=== PATIENT | male | born 1950 | race Two or more races ===

== ENCOUNTER → 2023-04-03 | Outpatient (CLI) | payer MEDICARE ==
--- NOTE | 2023-04-03 11:02 | CA ---
Stress Echo Report Aron Hubbard Age: 72 Gender: M : 1950 Exam Date: 04/03/2023 09:56 Exam Location: [place] Echo Ht (in): 70 Wt (lb): 200 Ordering Physician: Anjum Robison DO ([email or web address]) Referring Physician: MARCIA,, [employer] Car Repairer: Taylor Mcguire RDCS Technologist Procedure CPT: Indication: I25.10 ATHSCL HEART DISEASE OF [place] CORONARY ART ICD-9 Codes: Rhythm: Patient History: Post CABG, Smoker, Hypertension, Pre-op clearance Cardiac Medications: Medications in past 24 hours: Contrast: Stress Results Protocol: Phong Total dose(mL): Exercise Duration (min:sec): 4:[address] Depression (mm): Angina Score: Freire Score: METS: 5.4 Resting HR: 65 Resting BP: 149 / 99 Peak HR: 109 Peak BP: 193 / 89 Max Predicted HR: 147 74 % Max Predicted HR Target HR: 125 Double Product: [id number] Stress Summary: The patient's target heart rate was not achieved due to fatigue BP Response: Normal Reason for Termination: MAX EXERTION Cardiac Symptoms: FATIGUE ECG Analysis Resting ECG: Stress ECG: Arrhythmia: Echo Analysis Resting Echo: Peak Echo Analysis: MEASUREMENTS (Male/Female) Normal Values CONCLUSIONS Baseline EKG revealed a normal sinus rhythm with LVH by voltage criteria and inferolateral ST and T wave abnormality suggestive of LVH. Patient walked for a total duration of 4 minutes 21 seconds and achieved a maximum heart rate of 109 bpm. EKG remained inconclusive. There was no arrhythmia. Stress test. Because of severe fatigue. Resting heart rate was 65 bpm. Resting blood pressure was 149/99 and peak blood pressure was 193/89. This is an inconclusive stress test by EKG criteria because of resting EKG changes and inadequate chronotropic response Baseline echo images revealed moderate to severe concentric LVH. Possibility of nonobstructive hypertrophic cardiomyopathy should be considered. At peak exercise there was increased contractility of all segments. However heart rate response was suboptimal therefore this is a inconclusive stress echo but at a heart rate of nearly 108 bpm there was no evidence of ischemia. Final impression #1 inconclusive stress test by EKG criteria with limited x-rays capacity and fatigue. 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 #3 if ischemia is strongly suspected I would recommend a pharmacological stress test since patient is unable to walk to achieved a heart rate response. Dr. Patti Simmons MD (Electronically Signed) Final Date: 03 April 2023 11:01
== END | disposition home or self-care (01) ==
LOC: RADNMMAIN 09:32
PROVIDERS: ATTEND Internal Medicine
DX: Z01.818 Encounter for other preprocedural examination (principal); I25.10 Atherosclerotic heart disease of native coronary artery without angina pectoris; I10 Essential (primary) hypertension; F17.200 Nicotine dependence, unspecified, uncomplicated; Z95.1 Presence of aortocoronary bypass graft
CPT/HCPCS: 93351

== ENCOUNTER → 2023-06-18 | Outpatient (CLI) | payer MEDICARE ==
[2023-06-18 16:33] LABS: BUN/Creat Ratio 16.11 Ratio (12.00-20.00); Blood Urea Nitrogen 45.1 mg/dL (9.0-27.0); Calcium 10.2 mg/dL (8.7-10.3); Carbon Dioxide 21.2 mmol/L (21.6-31.8); Chloride 104 mmol/L (96-109); Glucose 90 mg/dL (70-110); Potassium 4.5 mmol/L (3.5-5.5); Sodium 140 mmol/L (135-145)
[2023-06-18 16:47] LABS: Basophils # (A) 0.03 X 10*3/uL (0.00-0.10); Basophils % (A) 0.4 %; Eosinophils # (A) 0.09 X 10*3/uL (0.04-0.35); Eosinophils % (A) 1.1 %; HCT 41.8 % (39.6-50.0); HGB 14.7 d/dL (13.0-17.0); Lymphocytes # (A) 1.38 X 10*3/uL (0.90-5.00); Lymphocytes % (A) 17.3 %; MCH 31.6 pg (27.0-32.0); MCHC 35.2 d/dL (32.0-37.0); MCV 89.9 FL (80.0-97.0); Mean Platelet Volume 9.7 FL (9.5-12.2); Monocytes # (A) 0.61 X 10*3/uL (0.20-1.00); Monocytes % (A) 7.6 %; NRBC Per 100 WBC 0 X 10*3/uL (0.00-0.01); Neutrophils # (A) 5.83 X 10*3/uL (1.80-7.70); Neutrophils % (A) 73.1 %; Platelet Count 235 X 10*3/uL (140-440); RBC 4.65 X 10*6/uL (4.40-5.60); RDW 12.7 % (11.5-14.5); WBC 7.98 X 10*3/uL (4.50-10.00)
== END | disposition home or self-care (01) ==
LOC: LABPAT 10:12
PROVIDERS: ATTEND Urology
DX: Z01.812 Encounter for preprocedural laboratory examination (principal); N40.1 Benign prostatic hyperplasia with lower urinary tract symptoms; R33.9 Retention of urine, unspecified
CPT/HCPCS: 80048; 85025

== ENCOUNTER 2023-06-28 08:50 | Day surgery (SDC) | payer MEDICARE ==
--- NOTE | 2023-06-28 06:32 | P.GSHP ---
History of Present Illness H&P Date: 06/28/23 Chief Complaint: Urinary retention The patient is a 73-year-old white male hospitalized in September 2022. He was found to have renal insufficiency. Imaging showed bilateral hydronephrosis due to urinary retention. He failed voiding trials and has been managed with an indwelling Angel catheter. Cystoscopy shows bilobar BPH, and urodynamic testing shows normal detrusor function. Alternative treatment options of been reviewed in detail with the patient and his . He has elected to undergo a transurethral resection of the prostate (TURP) and comes for this reason. - Cardiovascular Cardiovascular: Reports high blood pressure - Genitourinary (Male) Genitourinary: Reports as per HPI Past Medical History Past Medical History: CVA/TIA, Hypertension, Prostate Disorder Additional Past Medical History / Comment(s): vertigo, cardiac blockages, tia no residual issues, enlarged prostate, has seen kidney doctor ,has catheter History of Any Multi-Drug Resistant Organisms: None Reported Past Surgical History: Coronary Bypass/CABG, Tonsillectomy Additional Past Surgical History / Comment(s): nasal surgery for bloody nose, Past Anesthesia/Blood Transfusion Reactions: No Reported Reaction Additional Past Anesthesia/Blood Transfusion Reaction / Comment(s): hiccups post op Smoking Status: Current every day smoker Medications and Allergies Home Medications Medication Instructions Recorded Confirmed Type Ascorbic Acid [Vitamin C] 1,000 mg PO DAILY 09/27/22 06/25/23 History Cholecalciferol [Vitamin D3 (125 125 mcg PO DAILY 09/27/22 06/25/23 History Mcg = 5000 Iu)] Vitamin B Complex 1 cap PO DAILY 09/27/22 06/25/23 History Aspirin 81 mg PO DAILY #30 tab 10/04/22 06/25/23 Rx Labetalol [Trandate] 200 mg PO BID #60 tab 10/04/22 06/25/23 Rx Spironolactone [Aldactone] 25 mg PO DAILY #30 tab 10/04/22 06/25/23 Rx amLODIPine [Norvasc] 10 mg PO DAILY #30 tab 10/04/22 06/25/23 Rx hydrALAZINE HCL [Apresoline] 50 mg PO TID #90 tab 10/04/22 06/25/23 Rx Allergies Allergy/AdvReac Type Severity Reaction Status Date / Time No Known Allergies Allergy Verified 06/25/23 15:19 Surgical - Exam - General well developed, well nourished, no distress - Respiratory normal respiratory effort - Abdomen Abdomen: soft, non tender, no guarding, no rigid, no rebound - Genitourinary normal penis with no external lesions, testicles non-tender - Rectum Rectum: normal sphincter tone, no masses, other (Prostate mildly enlarged and smooth) - Psychiatric oriented to time, oriented to person, oriented to place, speech is normal, memory intact Assessment and Plan (1) Retention of urine, unspecified Status: Acute Code(s): R33.9 - RETENTION OF URINE, UNSPECIFIED SNOMED Code(s): 923616082 (2) Benign prostatic hyperplasia with lower urinary tract symptoms Status: Acute Code(s): N40.1 - BENIGN PROSTATIC HYPERPLASIA WITH LOWER URINARY TRACT SYMP SNOMED Code(s): 505568269 Plan: Cystoscopy, TURP. The procedure has been reviewed in detail with the patient and his . They understand potential risks to include anesthesia, bleeding, infection, urinary incontinence, and persistent urinary retention.
[~2023-06-28 08:50] MED LIST: DEXAMETHASONE SOD PHOSPHATE 4 MG/ML 1 ML VIAL IV ONE; GENTAMICIN 120 MG in SODIUM CHLORIDE 0.9% 100 ML IVPB PRN; HYDROmorphone 0.5 MG/0.5 ML SYRINGE IVP PRN; LACTATED RINGERS 1,000 ML IV SCH; LIDOCAINE 1% (10MG/ML) FOR IV START INTRADERMA PRN; MIDAZOLAM 2 MG/2 ML VIAL IV PRN; ONDANSETRON 4 MG/2 ML VIAL IVP ONE
[2023-06-28] MEDS ORDERED: IPRATROPIUM-ALBUTEROL 3 ML NEB ONE (10:03)
[2023-06-28] MEDS ORDERED: IPRATROPIUM-ALBUTEROL 3 ML NEB INHALATION STA (10:20)
[2023-06-28] MEDS ORDERED: GLYCOPYRROLATE 0.2 MG/ML 2 ML VIAL ONE (12:21)
[2023-06-28] MEDS ORDERED: ROCURONIUM 10 MG/ML (5 ML VIAL) IV ONE (12:21)
[2023-06-28] MEDS ORDERED: fentaNYL (PF) 50 MCG/ML 2 ML AMP ONE (12:21)
[2023-06-28] MEDS ORDERED: PROPOFOL 10 MG/ML 20 ML VIAL IV ONE (12:21)
[2023-06-28] MEDS ORDERED: NEOSTIGMINE 1 MG/ML 10 ML VIAL ONE (12:21)
[2023-06-28] MEDS ORDERED: SUCCINYLCHOLINE CHLORIDE 200 MG/10 ML VIAL IV ONE (12:21)
[2023-06-28] MEDS ORDERED: HYDROmorphone (PF) 1 MG/ML ONE (12:21)
[2023-06-28] MEDS ORDERED: MIDAZOLAM 2 MG/2 ML VIAL ONE (12:21)
[2023-06-28] MEDS ORDERED: LACTATED RINGERS 1,000 ML IV ONE (13:45)
[2023-06-28 14:12] VITALS: TEMP 97.4
--- NOTE | 2023-06-28 14:14 | P.OP ---
Date of Procedure: 06/28/23 Preoperative Diagnosis: Urinary retention secondary to BPH Postoperative Diagnosis: Same Procedure(s) Performed: Cystoscopy, bipolar transurethral resection of prostate (TURP) Anesthesia: HERMAN Surgeon: Baldomero Knowles Estimated Blood Loss (ml): 30 IV fluids (ml): 400 Pathology: other (Prostate chips) Condition: stable Disposition: PACU Indications for Procedure: The patient is a 73-year-old white male hospitalized in September 2022. He was found to have renal insufficiency. Imaging showed bilateral hydronephrosis due to urinary retention. He failed voiding trials and has been managed with an indwelling Angel catheter. Cystoscopy shows bilobar BPH, and urodynamic testing shows normal detrusor function. Alternative treatment options of been reviewed in detail with the patient and his . He has elected to undergo a transurethral resection of the prostate (TURP) and comes for this reason. Operative Findings: Bilobar BPH, complete occlusion. Trabeculated bladder with small diverticuli. Description of Procedure: The patient was taken in the operating room and placed in the dorsolithotomy position. The external genitalia was prepped and draped sterilely. The 25- [place] ACMI resectoscope sheath was introduced into the bladder. The bladder was inspected. Both ureteral orifices were of normal anatomic location and configuration, and clear urine effluxed from both. No tumors or foreign bodies were seen. There was evidence of catheter cystitis. The bladder was trabeculated with multiple small cellules/diverticuli. Examination of the prostate revealed complete obstruction with a bilobar configuration. Using the bipolar cutting loop, the lateral lobes were resected down to the surgical capsule. The floor of the prostate was then resected, proximal to the verumontanum. Next, the remaining anterior tissue was resected. The residual apical tissue was then carefully resected, with care taken to avoid injury to the external urinary sphincter. The resection was carried down to the surgical capsule in all 4 quadrants. The prostatic fossa was then carefully examined, and any areas of bleeding were controlled with electrocautery. Excellent hemostasis was attained. The resectoscope was withdrawn into the bulbous urethra. The external urinary sphincter remained intact. The prostatic fossa was open. The Connected evacuator was used to remove all prostate chips from the bladder. These were saved and sent for pathologic examination. The resectoscope was removed, and a 20 [place] Angel catheter was placed. The return was essentially clear. The patient tolerated the procedure well was taken to the recovery room in stable condition.
[2023-06-28 14:36] VITALS: RESP 16
[2023-06-28 15:44] VITALS: BP 135/74; PULSE 62
== END 2023-06-28 15:30 | disposition home or self-care (01) ==
LOC: OR 08:50
PROVIDERS: ATTEND Urology
DX: N40.1 Benign prostatic hyperplasia with lower urinary tract symptoms (principal); R33.8 Other retention of urine; I10 Essential (primary) hypertension; I25.2 Old myocardial infarction; J44.9 Chronic obstructive pulmonary disease, unspecified; F17.210 Nicotine dependence, cigarettes, uncomplicated; Z79.82 Long term (current) use of aspirin; Z95.1 Presence of aortocoronary bypass graft; Z86.73 Personal history of transient ischemic attack (TIA), and cerebral infarction without residual deficits; Z79.899 Other long term (current) drug therapy
CPT/HCPCS: 52601; 88305; J2250; J0330; J1100; J2710; J0690; J2405; J3010; J1580; J1170; J2704